=== PATIENT | male | born 1950 | race African-American/Black ===

== ENCOUNTER 2024-11-28 11:17 | Inpatient (IN) | payer MEDICARE, OTHER ==
[~2024-11-28] VITALS: Ht 165.1 cm; Wt 61.7 kg
[~2024-11-28 11:17] MED LIST: AMLO-905 MT; ASPI-1497 PO; LOSA-413 PO
[2024-11-28 11:49] LABS: BASOPHILS % 0.7 % (0.0-2.0); EOSINOPHILS % 1.1 % (0.0-5.0); HEMATOCRIT. 30.3 % (42.0-52.0); HEMOGLOBIN. 9.6 g/dL (14.0-18.0); LYMPHOCYTES % 15.1 % (20.0-50.0); MEAN PLATELET VOLUME 11.2 fl (7.4-10.4); MONOCYTES % 10.3 % (2.0-8.0); NEUTROPHILS % 72.8 % (40.0-76.0); PLATELET 159 x1000/uL (130-400); RED BLOOD CELL COUNT 4.35 mill/uL (4.7-6.1); RED CELL DISTRIBUTION WIDTH 18.2 % (11.6-14.6)
[2024-11-28 11:52] LABS: ADD RBC MORPHOLOGY YES
[2024-11-28 12:14] LABS: CREATININE 0.9 mg/dL (0.6-1.3)
[2024-11-28 12:15] LABS: UREA NITROGEN BLOOD 13 mg/dL (9-23)
[2024-11-28 12:23] LABS: TROPONIN I HIGH SENSITIVITY 78 ng/L (3.0-53)
[2024-11-28 12:24] LABS: PLATELET ESTIMATE NORMAL
[2024-11-28] MEDS: ASPIRIN 325MG EC TABLET PO ONE (13:37)
[2024-11-28 14:19] LABS: TROPONIN I HIGH SENSITIVITY 81 ng/L (3.0-53)
[2024-11-28] MEDS ORDERED: DOCUSATE SODIUM 100MG CAPSULE PO PRN (15:30)
[2024-11-28] MEDS ORDERED: ONDANSETRON HCL 4MG/2ML INJ IV PRN (15:30)
[2024-11-28] MEDS ORDERED: CLONIDINE 0.1MG TABLET PO PRN (15:30)
[2024-11-28] MEDS ORDERED: IPRATROPIUM/ALBUTEROL 0.5-3(2.5)MG/3ML NEB HHN PRN (15:30)
[2024-11-28] MEDS ORDERED: ACETAMINOPHEN 325MG TABLET PO PRN ×2 (15:30)
[2024-11-28 16:00] VITALS: BP 146/64; PULSE 71; RESP 18; TEMP 36.4; O2SAT 97
[2024-11-28] MEDS ORDERED: TAMS-54 PO (16:04)
[2024-11-28] MEDS ORDERED: ATOR-2 MT (16:05)
[2024-11-28] MEDS ORDERED: SITA100T11 MT (16:05)
[2024-11-28] MEDS ORDERED: GLIM1TAB55 MT (16:07)
[2024-11-28] MEDS ORDERED: GLIM2TAB30 MT (16:07)
[2024-11-28] MEDS ORDERED: CLOP75TA33 MT (16:07)
[2024-11-28] MEDS ORDERED: METF-1149 MT (16:07)
[2024-11-28] MEDS: CLOPIDOGREL 75MG TABLET PO SCH (16:25)
[2024-11-28] MEDS: AMLODIPINE 10MG TABLET PO SCH (16:25)
[2024-11-28 16:35] VITALS: BP 146/64; PULSE 71; RESP 18; TEMP 36.5848
[2024-11-28] MEDS ORDERED: DEXTROSE 50% WATER 50ML SYRINGE IV PRN (17:15)
[2024-11-28] MEDS: BLOOD SUGAR DIAGNOSTIC STRIP TEST SCH (17:17)
[2024-11-28] MEDS: INSULIN LISPRO 100 UNITS/ML SUBCUT SCH (17:31)
[2024-11-28 18:47] LABS: FOLIC ACID (FOLATE) SERUM 3.28 ng/mL (>5.38); VITAMIN B12 SERUM 347 pg/mL (211-911)
[2024-11-28 19:19] LABS: HEPATITIS C AB NON REACTIVE (Neg) (Negative)
[2024-11-28 20:00] VITALS: BP 122/52; PULSE 74; RESP 17; TEMP 36.5; O2SAT 99
[2024-11-28] MEDS: ATORVASTATIN CALCIUM 40MG TABLET PO SCH (21:16)
[2024-11-28] MEDS: ENOXAPARIN 40MG/0.4ML SYR SUBCUT SCH (21:17)
[2024-11-29] VITALS: BP 114/51; PULSE 71; RESP 18; TEMP 36.6; O2SAT 98
[2024-11-29 04:00] VITALS: BP 129/60; PULSE 70; RESP 16; TEMP 36.6; O2SAT 99
[2024-11-29 05:51] LABS: CREATININE 0.8 mg/dL (0.6-1.3); UREA NITROGEN BLOOD 11 mg/dL (9-23)
[2024-11-29 05:56] LABS: BASOPHILS % 1.0 % (0.0-2.0); EOSINOPHILS % 2.1 % (0.0-5.0); HEMATOCRIT. 30.1 % (42.0-52.0); HEMOGLOBIN. 9.5 g/dL (14.0-18.0); LYMPHOCYTES % 20.2 % (20.0-50.0); MEAN PLATELET VOLUME 11.6 fl (7.4-10.4); MONOCYTES % 11.0 % (2.0-8.0); NEUTROPHILS % 65.7 % (40.0-76.0); PLATELET 168 x1000/uL (130-400); RED BLOOD CELL COUNT 4.27 mill/uL (4.7-6.1); RED CELL DISTRIBUTION WIDTH 18.6 % (11.6-14.6)
[2024-11-29 08:00] VITALS: BP 128/54; PULSE 69; RESP 18; TEMP 36.2; O2SAT 98
[2024-11-29] MEDS ORDERED: DEXTROSE 50% WATER 50ML SYRINGE IV PRN (08:45)
[2024-11-29] MEDS: LOSARTAN 50 MG TABLET PO SCH (09:00)
[2024-11-29] MEDS: FOLIC ACID/VITAMIN B COMP W-C TABLET PO SCH (09:05)
[2024-11-29] MEDS: BLOOD SUGAR DIAGNOSTIC STRIP TEST SCH (11:45)
[2024-11-29] MEDS: INSULIN LISPRO 100 UNITS/ML SUBCUT SCH (11:46)
[2024-11-29 12:00] VITALS: BP 129/64; PULSE 18; RESP 18; TEMP 36.2; O2SAT 99
[2024-11-29 16:00] VITALS: BP 126/56; PULSE 65; RESP 18; TEMP 36.1; O2SAT 98
[2024-11-29 20:00] VITALS: BP 130/52; PULSE 78; RESP 18; TEMP 36.4; O2SAT 100
[2024-11-29] MEDS: INSULIN GLARGINE 100 UNITS/ML SUBCUT SCH (21:36)
[2024-11-29] MEDS: FAMOTIDINE 20MG TABLET PO SCH (21:38)
[2024-11-30] VITALS: BP 125/55; PULSE 67; RESP 17; TEMP 36.4; O2SAT 100
[2024-11-30 04:00] VITALS: BP 131/56; PULSE 69; RESP 18; TEMP 36.6; O2SAT 100
[2024-11-30 08:00] VITALS: BP 130/55; PULSE 63; RESP 15; TEMP 36.5; O2SAT 97
[2024-11-30] MEDS ORDERED: [UNRECOGNIZED DRUG - OTHER] PO SCH (09:00)
[2024-11-30 12:00] VITALS: BP 123/50; PULSE 72; RESP 18; TEMP 36.2; O2SAT 98
[2024-11-30 16:00] VITALS: BP 121/52; PULSE 73; RESP 15; TEMP 36.1; O2SAT 99
[2024-11-30] MEDS: METFORMIN HCL 500MG TABLET PO SCH (18:36)
[2024-11-30 20:00] VITALS: BP 135/62; PULSE 92; RESP 18; TEMP 36.6; O2SAT 100
[2024-12-01] VITALS: BP 116/48; RESP 18; TEMP 36.6; O2SAT 97
[2024-12-01 04:00] VITALS: BP 130/58; PULSE 67; RESP 19; TEMP 36.3; O2SAT 100
[2024-12-01 08:00] VITALS: BP 125/56; PULSE 68; RESP 17; TEMP 37.1; O2SAT 100
[2024-12-01] MEDS: FERROUS SULFATE 325MG TABLET PO SCH (08:47)
[2024-12-01] MEDS: LINAGLIPTIN 5MG TABLET PO SCH (09:10)
[2024-12-01 12:00] VITALS: BP 142/56; PULSE 68; RESP 18; TEMP 36.5; O2SAT 95
[2024-12-01 13:45] VITALS: BP 142/56; PULSE 68; TEMP 97.7; O2SAT 95
== END 2024-12-01 15:05 | DRG 563 ==
LOC: ER 11:17 → 5WST 14:44 → EDBEDREQTM 14:52 → EDBEDREQ 14:52 → ENRESERV 15:04 → 8EST 12-01 03:15
PROVIDERS: ADMIT Hospitalist; ATTEND Hospitalist
PROC: 2W3LX1Z Immobilization of Right Lower Extremity using Splint (ICD-10-PCS; principal; 2024-11-29)
DX: S82.831A Other fracture of upper and lower end of right fibula, initial encounter for closed fracture (principal); I69.351 Hemiplegia and hemiparesis following cerebral infarction affecting right dominant side; I10 Essential (primary) hypertension; E78.5 Hyperlipidemia, unspecified; T24.012A Burn of unspecified degree of left thigh, initial encounter; X08.8XXA Exposure to other specified smoke, fire and flames, initial encounter; Y93.89 Activity, other specified; Y92.89 Other specified places as the place of occurrence of the external cause; Y99.8 Other external cause status; Z79.899 Other long term (current) drug therapy; Z79.01 Long term (current) use of anticoagulants; Z79.82 Long term (current) use of aspirin; Z79.84 Long term (current) use of oral hypoglycemic drugs; T24.011A Burn of unspecified degree of right thigh, initial encounter; E11.65 Type 2 diabetes mellitus with hyperglycemia; W19.XXXA Unspecified fall, initial encounter; D50.9 Iron deficiency anemia, unspecified; I69.320 Aphasia following cerebral infarction
CPT/HCPCS: 36415; 71045; 73610; 80048; 82550; 82607; 82728; 82746; 82962; 83036; 83540; 83550; 83880; 84484; 85025; 86705; 87340; 93005; 93970; 97116; 97162; 97167; 97530; 97535; 99285; A4606; J1650; J1815